=== PATIENT | female | born 1985 | race Caucasian/White ===

== ENCOUNTER 2017-06-26 18:02 | Emergency (ER) | payer OTHER ==
[~2017-06-26] VITALS: Ht 160 cm; Wt 79.6 kg
[~2017-06-26 18:02] MED LIST: IBUP-1222 PO
[2017-06-26 18:05] VITALS: BP 133/85
[2017-06-26] MEDS ORDERED: IBUPROFEN 200 MG TABLET PO ONE (18:30)
[2017-06-26] MEDS ORDERED: IBUPROFEN 200 MG TABLET ONE (18:36)
== END 2017-06-26 19:36 | disposition home or self-care (01) ==
LOC: ED 19:00
DX: S52.102A Unspecified fracture of upper end of left radius, initial encounter for closed fracture (principal); G89.11 Acute pain due to trauma; W01.0XXA Fall on same level from slipping, tripping and stumbling without subsequent striking against object, initial encounter; Y93.89 Activity, other specified; Y92.488 Other paved roadways as the place of occurrence of the external cause; Y99.8 Other external cause status
CPT/HCPCS: 29125; 99284

== ENCOUNTER 2020-03-12 16:36 | Emergency (ER) | payer BC ==
[~2020-03-12] VITALS: Ht 160 cm; Wt 77.2 kg
[~2020-03-12 16:36] MED LIST changes: +FERR240T PO
--- NOTE | 2020-03-12 18:41 | NUR ---
WELLNESS NURSE: PT WALKED BACK FROM LOBBY TO ROOM AT THIS TIME.
[2020-03-12] MEDS ORDERED: SODIUM CHLORIDE 0.9% 1,000ML IVBOLUS ONE (19:30)
[2020-03-12 19:39] LABS: BASOPHILS # (AUTO) 0.11 x10^3/uL (0-0.1); BASOPHILS % (AUTO) 1 % (0-1); EOSINOPHILS # (AUTO) 0.12 x10^3/uL (0-0.4); EOSINOPHILS % (AUTO) 1 % (1-7); LYMPHOCYTES # (AUTO) 1.75 x10^3/uL (1-3.4); LYMPHOCYTES % (AUTO) 16 % (22-44); MD NO; MEAN CORPUSCULAR HEMOGLOBIN 30.9 pg (27.0-34.8); MEAN CORPUSCULAR HGB CONC 33.2 g/dL (32.4-35.8); MEAN PLATELET VOLUME 7.6 fL (7.4-10.4); MONOCYTES # (AUTO) 0.93 x10^3/uL (0.2-0.8); MONOCYTES % (AUTO) 8 % (2-9); NEUTROPHILS # (AUTO) 8.09 x10^3/uL (1.8-6.8); NEUTROPHILS % (AUTO) 74 % (42-75); PLATELET COUNT 404 x10^3/uL (130-400); RED BLOOD COUNT 4.62 x10^6/uL (3.82-5.3); RED CELL DISTRIBUTION WIDTH 14.1 % (9.6-15.2)
[2020-03-12 19:48] LABS: ALBUMIN 3.7 g/dL (3.4-5.0); ANION GAP 7 mmol/L (5-15); CHLORIDE 105 mmol/L (98-107)
[2020-03-12 19:51] LABS: ALANINE AMINOTRANSFERASE 17 U/L (12-78); ALKALINE PHOSPHATASE 94 U/L (45-117); BILIRUBIN,TOTAL 0.4 mg/dL (0.2-1.0); CREATININE 0.76 mg/dL (0.55-1.02); TOTAL PROTEIN 8.4 g/dL (6.4-8.2)
--- NOTE | 2020-03-12 20:48 | NUR ---
covid swab collected and walked to the lab
[2020-03-12 21:32] VITALS: BP 108/62
== END 2020-03-12 21:33 | disposition home or self-care (01) ==
LOC: ED 19:04
DX: K62.89 Other specified diseases of anus and rectum (principal); Z20.828 Contact with and (suspected) exposure to other viral communicable diseases; R50.9 Fever, unspecified; K64.9 Unspecified hemorrhoids; R00.0 Tachycardia, unspecified
CPT/HCPCS: 36415; 80053; 83605; 85025; 87040; 87635; 93005; 99284; J7030